=== PATIENT | female | born 1970 | race Caucasian/White ===

== ENCOUNTER 2017-09-26 17:48 | Emergency (ER) | payer SELFPAY ==
[~2017-09-26] VITALS: Ht 160 cm; Wt 100.0 kg
[2017-09-26 17:49] VITALS: BP 109/68
== END 2017-09-26 20:07 | disposition left against medical advice (07) ==
LOC: EMS 17:49
DX: H92.01 Otalgia, right ear (principal); R09.81 Nasal congestion; Z53.21 Procedure and treatment not carried out due to patient leaving prior to being seen by health care provider